=== PATIENT | female | born 1985 | race Caucasian/White ===

== ENCOUNTER 2023-09-06 17:16 | Observation (INO) | payer BC ==
[~2023-09-06] VITALS: Ht 165.1 cm; Wt 87.1 kg
[2023-09-06 20:38] VITALS: BP 118/95
[2023-09-07] VITALS (11 sets, daily range): BP systolic 103–126; BP diastolic 66–87
--- NOTE | 2023-09-07 00:55 | NUR ---
PT ARRIVED TO THE UNIT AT 1938. PT UP AD JALEN, TRANSFERED TO THE HOSPITAL BED, GAIT STEADY. PT A&O x4, VSS, AFEBRILE. PT ADMITTED TO 3 [facility] FOR ACUTE APPENDICITIS. PT C/O PAIN TO RLQ, PT REQUESTED PAIN MEDICATION. PAIN MANAGED WITH PRN PO NORCO AND IV FENTANYL. NO C/O NAUSEA. PT HAS SURGERY SCHEDULED FOR 09/[address] PLEITEZ. PT WILL BE NPO AT 0400. PT RECEIVING IV ANTIBIOTICS. PT PLEASANT AND COOPERATIVE WITH CARE PROVIDED. ROOMING-IN WITH PT. CALL LIGHT WITHIN REACH, WCTM.
--- NOTE | 2023-09-07 14:20 | NUR ---
PATIENT ARRIVED FROM PACU TODAY AT 1415. POD 0 LAP APPY PATIENT IS A&OX4. VS ARE WNL AND IS ON RA. SHE WAS ABLE TO TRANSFER HERSELF FROM THE [facility] TO THE BED A SBA. HER ABD HAS X3 LAP SITES WITH STERI STRIPS THAT ARE C/D/I. SHE DENIES NAUSEA OR VOMITING AND IS TOLERATING SMALL AMOUNTS OF CLEAR LIQUIDS AT THIS TIME. PATIENT IS LAYING IN BED WITH AT BEDSIDE AND CALL LIGHT IN REACH.
[2023-09-07] MEDS ORDERED: Norco 5-325 Ta1 EACH PO (15:08)
[2023-09-07] MEDS ORDERED: AMOCLA875 PO (15:09)
--- NOTE | 2023-09-07 16:54 | NUR ---
DISCHARGE NOTE: PATIENT AND PATIENTS WERE EDUCATED ON DISCHARGE INSTRUCTIONS. BOTH VERBALIZED UNDERSTANDING OF INSTRUCTIONS. IV WAS TAKEN OUT AND WNL. PAIN IS MANAGED WITH PO PAIN MEDS. HARD PERSCRIPTIONS WERE ALREADY GIVEN TO AND ARE FILLED. HER ABD HAS X3 LAP SITES WITH STERI STRIPS THAT ARE C/D/I. DENIES NAUSEA OR VOMITING. SHE IS TOLERATING PO INTAKE AND IS VOIDING/PASSING GAS. PATIENT IS DRESSED AND HAS ABD BINDER ON. ALL PERSONAL ITEMS IN THE ROOM ARE GATHERED. IV WAS TAKEN OUT AND WNL. PATIENT DECLINED TO BE WHEELCHAIRED OUT AND IS INSTEAD WALKING OUT TO HER HUSBANDS CAR WITH HER TO BE TAKEN HOME.
== END 2023-09-07 16:56 | disposition home or self-care (01) ==
LOC: ER 17:16 → MEDS 17:17 → SURS 09-07 11:50
PROVIDERS: ADMIT Surgery
PROC: 0DTJ4ZZ Resection of Appendix, Percutaneous Endoscopic Approach (ICD-10-PCS; principal; 2023-09-07 12:00)
DX: K35.33 Acute appendicitis with perforation, localized peritonitis, and gangrene, with abscess (principal); Z72.0 Tobacco use
CPT/HCPCS: 81025; 88304; 96365; 96366; 96375; 96376; 99284-25; A9270; G0378; J0295; J1170; J2250; J2405; J2704; J3010; J7120

== ENCOUNTER → 2024-10-27 | Outpatient (CLI) | payer BC ==
[~2024-10-27] MED LIST: AMOCLA875 PO; Norco 5-325 Ta1 EACH PO
[2024-11-06 11:48] LABS: HPV HIGH RISK BY TMA Not Detected; HPV SOURCE Cervical
== END ==
LOC: LAB SHORT 12:00 → LAB 12:00
PROVIDERS: Family Medicine
DX: Z12.4 Encounter for screening for malignant neoplasm of cervix (principal)
CPT/HCPCS: 87624; G0123